=== PATIENT | male | born 1980 | race Caucasian/White ===

== ENCOUNTER 2016-10-23 13:05 | Emergency (ER) | payer OTHER ==
[2016-10-23 13:10] VITALS: BP 137/64
[2016-10-23] MEDS ORDERED: Cyclobenzaprine TAB* 10 MG PO ONE (13:36)
[2016-10-23] MEDS ORDERED: Ketorolac INJ* 60 MG/2 ML VIAL IM ONE (13:36)
--- NOTE | 2017-01-07 21:35 | ED ---
Back Pain - HPI Summary HPI Summary: Pt here w/ Lt sided upper to mid back pain after sneezing three days ago. Worse w/ neck movements and Lt shoulder movements. H/o muscle strain here before. Denies numbness, tingling, weakness, neck pain, [place]. Has tried ibuprofen yesterday w/ relief. Came in for concern of prolonged pain and has to go back to work. - History of Current Complaint Chief Complaint: EDBackInjuryPain Stated Complaint: BACK PAIN Time Seen by Provider: 10/23/16 13:26 Hx Obtained From: Patient Pain Intensity: 5 Pain Scale Used: 0-10 Numeric - Allergies/Home Medications Allergies/Adverse Reactions: Allergies Allergy/AdvReac Type Severity Reaction Status Date / Time No Known Allergies Allergy Verified 10/23/16 13:08 PMH/Surg Hx/FS Hx/Imm Hx Previously Healthy: Yes Endocrine/Hematology History: Denies: Hx Anticoagulant Therapy, Hx Blood Disorders History: Reports: Hx Kidney Stones Neurological History: Denies: Hx Headaches Infectious Disease History: No Infectious Disease History: Denies: Traveled Outside the [place] in Last 30 Days - Family History Known Family History: Positive: None - pt denies a significant FHx - Social History Alcohol Use: None Substance Use Type: Reports: None Smoking Status (MU): Never Smoked Tobacco Review of Systems Constitutional: Negative Negative: Fever, Chills, Fatigue Negative: Chest Pain Respiratory: Negative Negative: Shortness Of Breath, Cough Negative: Abdominal Pain, Vomiting, Nausea Musculoskeletal: Other - see HPI Skin: Negative Neurological: Negative Psychological: Normal All Other Systems Reviewed And Are Negative: Yes Physical Exam Triage Information Reviewed: Yes Vital Signs On Initial Exam: Initial Vitals Temp Pulse Resp BP Pulse Ox 98.1 F 86 16 137/64 99 10/23/16 13:09 10/23/16 13:09 10/23/16 13:09 10/23/16 13:09 10/23/16 13:09 Vital Signs Reviewed: Yes Appearance: Positive: Well-Appearing, Well-Nourished, Pain Distress - mild at rest Skin: Positive: Warm, Dry - no erythema, no ecchymosis over affected area Head/Face: Positive: Normal Head/Face Inspection Eyes: Positive: Normal, EOMI, Conjunctiva Clear ENT: Positive: Hearing grossly normal Neck: Positive: Supple, Nontender, No Lymphadenopathy Respiratory/Lung Sounds: Positive: Clear to Auscultation, Breath Sounds Present. Negative: Rales, Rhonchi, Subcutaneous Emphysema, Stridor, Tracheal Deviation, Wheezes Cardiovascular: Positive: Normal, RRR, Pulses are Symmetrical in both Upper and Lower Extremities, S1, S2. Negative: Murmur, Rub Abdomen Description: Positive: Nontender, Soft Musculoskeletal: Positive: Strength/ROM Intact - UE and cervical spine B/L, Pain @ - Lt trapezius and rhomboid mm are TTP but feel better w gentle massage - no gris deformity, Other - spinous pp NTTP Neurological: Positive: Normal, Sensory/Motor Intact, Alert, Oriented to Person Place, Time, CN Intact II-III, Reflexes Intact Psychiatric: Positive: Normal Diagnostics - Vital Signs Vital Signs Temp Pulse Resp BP Pulse Ox 10/23/16 13:23 98.1 F 86 16 137/64 99 10/23/16 13:09 98.1 F 86 16 137/64 99 - Laboratory Lab Statement: Any lab studies that have been ordered have been reviewed, and results considered in the medical decision making process. Back Pain Course/Dx - Diagnoses Provider Diagnoses: Trapezius muscle strain Discharge - Discharge Plan Condition: Stable Disposition: HOME Prescriptions: Cyclobenzaprine TAB* [Flexeril 10 MG TAB*] 10 mg PO TID PRN #15 tab PRN Reason: Pain Patient Education Materials: Cervical Strain (ED) Forms: *Work Release Referrals: Rodolfo Mendoza [employer] [Nurse Practitioner] - Additional Instructions: Alternate heat with ice to affected area - gentle stretching. You may take ibuprofen with food and alternate with acetaminophen for pain. If not relief, you may also try flexeril for pain. Stay hydrated. Follow-up with PCP in 1-2 weeks if persists as you may benefit from physical therapy, massage, etc.
== END 2016-10-23 14:13 | disposition home or self-care (01) ==
LOC: ED 13:05
DX: S46.912A Strain of unspecified muscle, fascia and tendon at shoulder and upper arm level, left arm, initial encounter (principal); M54.9 Dorsalgia, unspecified; X58.XXXA Exposure to other specified factors, initial encounter; Y93.89 Activity, other specified; Y92.9 Unspecified place or not applicable
CPT/HCPCS: 96372; 99282; A9270-GY; J1885

== ENCOUNTER 2017-09-21 08:18 | Emergency (ER) | payer OTHER ==
[2017-09-21 08:35] VITALS: BP 119/82
--- NOTE | 2017-09-21 09:02 | UC ---
Abdominal Pain Male HPI - HPI Summary HPI Summary: 37 yo male c/o LUQ pain and LBP x few days associated with constipation, denies f/c/dysuria, urinary urgency and frequency or diarrhea - History of Current Complaint Chief Complaint: UCAbdominalPain Stated Complaint: ABD PAIN Time Seen by Provider: 09/21/17 08:50 Hx Obtained From: Patient Onset/Duration: Lasting Days, Resolved Severity Initially: Moderate Severity Currently: Moderate Pain Intensity: 4 - Allergies/Home Medications Allergies/Adverse Reactions: Allergies Allergy/AdvReac Type Severity Reaction Status Date / Time No Known Allergies Allergy Verified 09/21/17 08:35 PMH/Surg Hx/FS Hx/Imm Hx Previously Healthy: Yes Other History Of: Negative For: Anticoagulant Therapy - Surgical History Surgical History: None - Family History Known Family History: Positive: None - pt denies a significant FHx - Social History Alcohol Use: None Substance Use Type: None Smoking Status (MU): Never Smoked Tobacco Review of Systems Constitutional: Negative Skin: Negative Eyes: Negative ENT: Negative Respiratory: Negative Cardiovascular: Negative Gastrointestinal: Abdominal Pain Genitourinary: Negative Motor: Negative Neurovascular: Negative Musculoskeletal: Negative Neurological: Negative Psychological: Negative All Other Systems Reviewed And Are Negative: Yes Physical Exam Triage Information Reviewed: Yes Appearance: Well-Appearing Vital Signs: Initial Vital Signs Temp 36.4 C 09/21/17 08:29 Pulse 84 09/21/17 08:29 Resp 16 09/21/17 08:29 BP 119/82 09/21/17 08:29 Pulse Ox 100 09/21/17 08:29 Vital Signs Reviewed: Yes Eye Exam: Normal ENT Exam: Normal Dental Exam: Normal Neck exam: Normal Neck: Positive: 1 Respiratory Exam: Normal Cardiovascular Exam: Normal Abdomen Description: Positive: Soft, Other: - dense in all 4 quadrants Musculoskeletal Exam: Normal Neurological Exam: Normal Psychological Exam: Normal Skin Exam: Normal Abd Pain Male Course/Dx - Course Course Of Treatment: Abd XR flat and upright neg for free air, but significant fecal stasis noted- stool softerners and mag citrate as prescribed. UA neg for nitraites and LE with 1+ blood, SP gravity 1.030 - Differential Dx/Clinical Impression Differential Diagnosis/HQI/PQRI: Constipation, Diverticulitis, Peptic Ulcer Disease, Urinary Tract Infection Provider Diagnoses: fecal stasis Discharge - Sign-Out/Discharge Documenting (check all that apply): Discharge - Discharge Plan Condition: Stable Disposition: HOME Prescriptions: Docusate CAP* [Colace Cap*] 100 mg PO TID 30 Days #90 cap Magnesium CITRATE* [Citrate of Magnesia*] 300 ml PO ONCE #1 btl Patient Education Materials: Constipation (ED) Referrals: Lupis Fernández MD [Primary Care Provider] - - Billing Disposition and Condition Condition: STABLE Disposition: HOME
--- NOTE | 2017-09-21 09:45 | RAD ---
Indication: Left upper quadrant pain. Flat and upright views of the abdomen demonstrates no free air. No dilated loops of bowel are noted. The colon is filled with stool. IMPRESSION: No free air or obstruction is noted.
== END 2017-09-21 10:33 | disposition home or self-care (01) ==
LOC: UCEAST 08:18
DX: K56.41 Fecal impaction (principal)
CPT/HCPCS: 74019; 81003; 99212; G0463

== ENCOUNTER 2017-11-16 07:59 | Emergency (ER) | payer OTHER ==
[2017-11-16 08:45] LABS: ABS Basophils 0.1 10^3/ul (0-0.2); ABS Eosinophils 0.2 10^3/ul (0-0.6); ABS Lymphocytes 2.5 10^3/ul (1.0-4.8); ABS Monocytes 0.6 10^3/ul (0-0.8); ABS Neutrophils 4.2 10^3/ul (1.5-7.7); ABS Nucleated RBC 0 10^3/ul; Eosinophil % 2.8 % (0-6); Hematocrit 39 % (42-52); Hemoglobin 13.2 g/dl (14.0-18.0); Lymphocyte % 33.1 % (25-47); Mean Corpuscular HGB Conc 34 g/dl (31-36); Mean Corpuscular Hemoglobin 28 pg (27-31); Mean Corpuscular Volume 81 fL (80-94); Nucleated Red Blood Cells % 0.1; Platelet Count 186 10^3/ul (150-450); Red Blood Count 4.77 10^6/ul (4.0-5.4); Red Cell Distribution Width 14 % (10.5-15); White Blood Count 7.7 10^3/ul (3.5-10.8)
[2017-11-16 08:53] LABS: INR 1.03 (0.77-1.02)
[2017-11-16 09:06] LABS: EGFR Non-African American 100.1 (>60)
--- NOTE | 2017-11-16 09:08 | RAD ---
INDICATION: Chest pain COMPARISON: None TECHNIQUE: PA and lateral dual-energy views were obtained. FINDINGS: Bones/Soft Tissues: There are no acute bony findings. Cardiomediastinal: The cardiomediastinal silhouette is normal. Lungs: There are no infiltrates. Pleura: There are no pleural effusions. Other: None IMPRESSION: NORMAL CHEST.
[2017-11-16 10:13] LABS: Urine Appearance Clear; Urine Blood 1+ (Negative); Urine Color Straw; Urine Ketones Negative (Negative); Urine Protein Negative (Negative); Urine Specific Gravity 1.004 (1.010-1.030); Urine Urobilinogen Negative (Negative)
[2017-11-16 10:55] VITALS: BP 119/74
--- NOTE | 2017-11-16 10:57 | ED ---
Shelly Kramer Rebecca, scribed for Anthony Soriano on 11/16/17 at 0825 . HPI Chest Pain - HPI Summary HPI Summary: Pt is a 37 y/o M who presents to ED c/o CP and abdominal pain. Sx have been present intermittently for 3 months, worsening recently which is what prompted him to come to the ED. Pain is in the left anterior chest pain and LUQ and on triage was mild, ranked 3/10, though in the room he denied any pain. Stated that the last time the pain occurred was last night. Occasionally, the pain will radiate into the left shoulder. Sx aggravated and alleviated by nothing. Additionally c/o intermittent SOB. PMHx GERD, FHx CAD>50y/o. - History of Current Complaint Chief Complaint: EDChestPainROMI Time Seen by Provider: 11/16/17 08:17 Hx Obtained From: Patient Onset/Duration: Started Weeks Ago Timing: Intermittent Current Severity: Mild Pain Intensity: 3 Pain Scale Used: 0-10 Numeric Chest Pain Location: Left Anterior Chest Pain Radiates To:: Shoulder - Left Aggravating Factor(s): Nothing Alleviating Factor(s): Nothing Associated Signs and Symptoms: Positive: Abdominal Pain - LUQ - Allergy/Home Medications Allergies/Adverse Reactions: Allergies Allergy/AdvReac Type Severity Reaction Status Date / Time No Known Allergies Allergy Verified 09/21/17 08:35 PMH/Surg Hx/FS Hx/Imm Hx Endocrine/Hematology History: Denies: Hx Anticoagulant Therapy, Hx Blood Disorders GI History: Reports: Hx Gastroesophageal Reflux Disease History: Reports: Hx Kidney Stones Neurological History: Denies: Hx Headaches Infectious Disease History: No Infectious Disease History: Denies: Traveled Outside the [place] in Last 30 Days - Family History Known Family History: Positive: Cardiac Disease - Social History Alcohol Use: None Substance Use Type: Reports: None Smoking Status (MU): Never Smoked Tobacco Review of Systems Positive: Chest Pain Positive: Shortness Of Breath Positive: Abdominal Pain All Other Systems Reviewed And Are Negative: Yes Physical Exam - Summary Physical Exam Summary: Appearance: Well appearing, no pain distress Skin: warm, dry, reflects adequate perfusion Head/face: normal Eyes: EOMI, BRENNEN ENT: normal Neck: supple, non-tender Respiratory: CTA, breath sounds present Cardiovascular: RRR, pulses symmetrical ~ Abdomen: non-tender, soft Bowel: present Musculoskeletal: normal, strength/ROM intact Neuro: normal, sensory motor intact, A&Ox3 Triage Information Reviewed: Yes Vital Signs On Initial Exam: Initial Vitals Temp Pulse Resp BP Pulse Ox 97.5 F 86 16 133/81 99 11/16/17 08:03 11/16/17 08:03 11/16/17 08:03 11/16/17 08:03 11/16/17 08:03 Vital Signs Reviewed: Yes Diagnostics - Vital Signs Vital Signs Temp Pulse Resp BP Pulse Ox 11/16/17 08:03 97.5 F 86 16 133/81 99 - Laboratory Lab Results: Lab Results 11/16/17 11/16/17 11/16/17 Range/Units 08:33 08:33 08:33 WBC 7.7 (3.5-10.8) 10^3/ul RBC 4.77 (4.0-5.4) 10^6/ul Hgb 13.2 L (14.0-18.0) g/dl Hct 39 L (42-52) % MCV 81 (80-94) fL MCH 28 (27-31) pg MCHC 34 (31-36) g/dl RDW 14 (10.5-15) % Plt Count 186 (150-450) 10^3/ul MPV 9.0 (7.4-10.4) um3 Neut % (Auto) 55.0 (38-83) % Lymph % (Auto) 33.1 (25-47) % Calloway % (Auto) 8.4 H (0-7) % Eos % (Auto) 2.8 (0-6) % Baso % (Auto) 0.7 (0-2) % Absolute Neuts (auto) 4.2 (1.5-7.7) 10^3/ul Absolute Lymphs (auto) 2.5 (1.0-4.8) 10^3/ul Absolute Monos (auto) 0.6 (0-0.8) 10^3/ul Absolute Eos (auto) 0.2 (0-0.6) 10^3/ul Absolute Basos (auto) 0.1 (0-0.2) 10^3/ul Absolute Nucleated RBC 0 10^3/ul Nucleated RBC % 0.1 INR (Anticoag Therapy) 1.03 H (0.77-1.02) APTT 28.8 (26.0-36.3) seconds Sodium 138 L (139-145) mmol/L Potassium 3.5 (3.5-5.0) mmol/L Chloride 104 (101-111) mmol/L Carbon Dioxide 30 (22-32) mmol/L Anion Gap 4 (2-11) mmol/L BUN 14 (6-24) mg/dL Creatinine 0.86 (0.67-1.17) mg/dL Est GFR ( Amer) 128.7 (>60) Est GFR (Non-Af Amer) 100.1 (>60) BUN/Creatinine Ratio 16.3 (8-20) Glucose 100 (70-100) mg/dL Lactic Acid (0.5-2.0) mmol/L Calcium 9.5 (8.6-10.3) mg/dL Magnesium 2.1 (1.9-2.7) mg/dL Total Bilirubin 0.40 (0.2-1.0) mg/dL AST 17 (13-39) U/L ALT 11 (7-52) U/L Alkaline Phosphatase 66 (34-104) U/L Troponin I 0.00 (<0.04) ng/mL B-Natriuretic Peptide ( - 100) pg/mL Total Protein 7.5 (6.4-8.9) g/dL Albumin 4.0 (3.2-5.2) g/dL Globulin 3.5 (2-4) g/dL Albumin/Globulin Ratio 1.1 (1-3) Lipase 35 (11.0-82.0) U/L Urine Color Urine Appearance Urine pH (5-9) Ur Specific Hope (1.010-1.030) Urine Protein (Negative) Urine Ketones (Negative) Urine Blood (Negative) Urine Nitrate (Negative) Urine Bilirubin (Negative) Urine Urobilinogen (Negative) Ur Leukocyte Esterase (Negative) Urine WBC (Auto) (Absent) Urine RBC (Auto) (Absent) Urine Bacteria (Absent) Urine Glucose (Negative) 11/16/17 11/16/17 11/16/17 Range/Units 08:33 08:33 09:50 WBC (3.5-10.8) 10^3/ul RBC (4.0-5.4) 10^6/ul Hgb (14.0-18.0) g/dl Hct (42-52) % MCV (80-94) fL MCH (27-31) pg MCHC (31-36) g/dl RDW (10.5-15) % Plt Count (150-450) 10^3/ul MPV (7.4-10.4) um3 Neut % (Auto) (38-83) % Lymph % (Auto) (25-47) % Calloway % (Auto) (0-7) % Eos % (Auto) (0-6) % Baso % (Auto) (0-2) % Absolute Neuts (auto) (1.5-7.7) 10^3/ul Absolute Lymphs (auto) (1.0-4.8) 10^3/ul Absolute Monos (auto) (0-0.8) 10^3/ul Absolute Eos (auto) (0-0.6) 10^3/ul Absolute Basos (auto) (0-0.2) 10^3/ul Absolute Nucleated RBC 10^3/ul Nucleated RBC % INR (Anticoag Therapy) (0.77-1.02) APTT (26.0-36.3) seconds Sodium (139-145) mmol/L Potassium (3.5-5.0) mmol/L Chloride (101-111) mmol/L Carbon Dioxide (22-32) mmol/L Anion Gap (2-11) mmol/L BUN (6-24) mg/dL Creatinine (0.67-1.17) mg/dL Est GFR ( Amer) (>60) Est GFR (Non-Af Amer) (>60) BUN/Creatinine Ratio (8-20) Glucose (70-100) mg/dL Lactic Acid 0.9 (0.5-2.0) mmol/L Calcium (8.6-10.3) mg/dL Magnesium (1.9-2.7) mg/dL Total Bilirubin (0.2-1.0) mg/dL AST (13-39) U/L ALT (7-52) U/L Alkaline Phosphatase (34-104) U/L Troponin I (<0.04) ng/mL B-Natriuretic Peptide 6 ( - 100) pg/mL Total Protein (6.4-8.9) g/dL Albumin (3.2-5.2) g/dL Globulin (2-4) g/dL Albumin/Globulin Ratio (1-3) Lipase (11.0-82.0) U/L Urine Color Straw Urine Appearance Clear Urine pH 7.0 (5-9) Ur Specific Hope 1.004 L (1.010-1.030) Urine Protein Negative (Negative) Urine Ketones Negative (Negative) Urine Blood 1+ A (Negative) Urine Nitrate Negative (Negative) Urine Bilirubin Negative (Negative) Urine Urobilinogen Negative (Negative) Ur Leukocyte Esterase Negative (Negative) Urine WBC (Auto) Trace(0-5/hpf) (Absent) Urine RBC (Auto) Trace(0-2/hpf) (Absent) Urine Bacteria Absent (Absent) Urine Glucose Negative (Negative) Result Diagrams: 11/16/17 08:33 11/16/17 08:33 Lab Statement: Any lab studies that have been ordered have been reviewed, and results considered in the medical decision making process. - Radiology CXR Xray Interpretation: No Acute Changes - NORMAL CHEST. Radiology report reviewed by ED physician. Radiology Interpretation Completed By: Radiologist - EKG 0811 Cardiac Rate: NL - 83 bpm EKG Rhythm: Sinus Rhythm EKG Interpretation: No acute changes Chest Pain Course/Dx - Course Assessment/Plan: Pt is a 37 y/o M who presented to ED c/o left-sided CP and LUQ abdominal pain intermittently for 3 months. It is unlikely to be ACS. CXR reveals no acute findings. EKG is sinus rhythm with no acute changes. Blood work and UA were done with blood results including a troponin of 0.00. The pt will be put on Protonix and discharged with Dx of atypical chest pain and a follow up with his PCP in 3 days. He will also be referred to cardiology for an outpatient stress test. - Chest Pain Differential Diagnosis/HQI/PQRI: Acute CA, ACS, Angina, GI Disease, Lower Respiratory Infection, Other: - gerd - Diagnoses Provider Diagnoses: Atypical chest pain Discharge - Sign-Out/Discharge Documenting (check all that apply): Discharge/Admit/Transfer - Discharge - Discharge Plan Condition: Stable Disposition: HOME Prescriptions: Pantoprazole TAB (NF) [Protonix TAB (NF)] 40 mg PO DAILY #30 tab Patient Education Materials: Chest Pain (ED) Referrals: Lupis Fernández MD [Primary Care Provider] - 3 Days Vernon Mosqueda MD [Medical Doctor] - (Follow up for an outpatient stress test. ) Additional Instructions: RETURN TO ED FOR ANY NEW OR WORSENING SYMPTOMS. - Billing Disposition and Condition Condition: STABLE Disposition: HOME The documentation as recorded by the Shelly dean Rebecca accurately reflects the service I personally performed and the decisions made by , Anthony Soriano.
== END 2017-11-16 10:55 | disposition home or self-care (01) ==
LOC: ED 07:59
DX: R07.89 Other chest pain (principal); K21.9 Gastro-esophageal reflux disease without esophagitis; Z87.442 Personal history of urinary calculi; R10.12 Left upper quadrant pain
CPT/HCPCS: 36415; 71046; 80053; 81003; 81015; 83605; 83690; 83735; 83880; 84484; 85025; 85610; 85730; 87086; 93005; 99282

== ENCOUNTER 2018-01-21 08:19 | Emergency (ER) | payer OTHER ==
[2018-01-21 08:35] VITALS: BP 115/70
--- NOTE | 2018-01-21 09:23 | RAD ---
Indication: Left middle finger injury. 3 views of left middle finger demonstrates no fracture. No other bone or joint abnormality is identified. IMPRESSION: No fracture of the left middle finger noted.
--- NOTE | 2018-01-21 09:41 | UC ---
Hand/Wrist HPI - HPI Summary HPI Summary: left third finger was caught in a door yesterday and he noticed stiffness and bruising, wants xray to rule out fracture. Denies any PMH or FHX, states he is taking a muscle relaxant for shoulder pain - History Of Current Complaint Chief Complaint: UCUpperExtremity Stated Complaint: FINGER INJURY Time Seen by Provider: 01/21/18 08:39 Hx Obtained From: Patient ?: Yes Onset/Duration: Sudden Onset, Lasting Hours Severity Initially: Mild Severity Currently: Moderate Pain Intensity: 5 Character Of Pain: Dull Aggravating Factor(s): Movement Alleviating Factor(s): Ice Associated Signs And Symptoms: Positive: Bruising - Allergies/Home Medications Allergies/Adverse Reactions: Allergies Allergy/AdvReac Type Severity Reaction Status Date / Time No Known Allergies Allergy Verified 09/21/17 08:35 PMH/Surg Hx/FS Hx/Imm Hx Previously Healthy: Yes Other History Of: Negative For: Anticoagulant Therapy - Surgical History Surgical History: None - Family History Known Family History: Positive: None - pt denies a significant FHx, Cardiac Disease - Social History Alcohol Use: None Substance Use Type: None Smoking Status (MU): Never Smoked Tobacco Review of Systems Constitutional: Negative All Other Systems Reviewed And Are Negative: Yes Physical Exam Triage Information Reviewed: Yes Appearance: Well-Appearing, No Pain Distress, Well-Nourished Vital Signs: Initial Vital Signs Temp 98.6 F 01/21/18 08:28 Pulse 84 01/21/18 08:28 Resp 18 01/21/18 08:28 BP 115/70 01/21/18 08:28 Pulse Ox 98 01/21/18 08:28 Vital Signs Reviewed: Yes Eyes: Positive: Conjunctiva Clear ENT: Positive: Hearing grossly normal, Pharynx normal Neck: Positive: Supple, Nontender Respiratory: Positive: Chest non-tender Cardiovascular: Positive: Pulses Normal, Brisk Capillary Refill Musculoskeletal: Positive: Strength Intact, ROM Intact, No Edema, Other: - no edema or deformity of left third finger. Subungueal hematoma noted without displacement of nail. Non tender to palpation. Sensation preserved. Capillary refill brisk, ulnar/radial pulses present Hand/Wrist Course/Dx - Course Course Of Treatment: blunt trauma on left third finger without evidence of fracture, xrays were normal. Instructed patient to continue ROM as tolerated. Offered drainage of subungueal hematoma but patient declined. - Differential Dx/Diagnosis Provider Diagnoses: Blunt trauma third left finger. Subungueal hematoma Discharge - Sign-Out/Discharge Documenting (check all that apply): Patient Departure - Discharge Plan Condition: Good Disposition: HOME Patient Education Materials: Melyssa Finger (ED), Subungual Hematoma (ED) Referrals: Lupis Fernández MD [Primary Care Provider] - - Billing Disposition and Condition Condition: GOOD Disposition: Home
== END 2018-01-21 09:53 | disposition home or self-care (01) ==
LOC: UCEAST 08:19
DX: S60.032A Contusion of left middle finger without damage to nail, initial encounter (principal); W23.0XXA Caught, crushed, jammed, or pinched between moving objects, initial encounter; Y93.9 Activity, unspecified; Y92.9 Unspecified place or not applicable
CPT/HCPCS: 73140; 99211; G0463

== ENCOUNTER 2019-09-29 10:53 | Emergency (ER) | payer OTHER ==
--- NOTE | 2019-09-29 11:06 | ED ---
Complex/Multi-Sys Presentation - HPI Summary HPI Summary: right shoulder pain, radiating down arm into hand. pain started when he was getting ready to go to bed and worsened overnight. feels numbness in fingers. - History Of Current Complaint Chief Complaint: EDExtremityUpper Time Seen by Provider: 09/29/19 11:01 - Allergies/Home Medications Allergies/Adverse Reactions: Allergies Allergy/AdvReac Type Severity Reaction Status Date / Time No Known Allergies Allergy Verified 09/29/19 10:59 Home Medications: Home Medications Cyclobenzaprine TAB* [Flexeril 10 MG TAB*] 10 mg PO TID PRN #15 tab 10/23/16 [ Rx Confirmed 09/29/19] Ibuprofen TAB* [Advil TAB*] 200 mg PO Q6H PRN 09/29/19 [History Confirmed ] PMH/Surg Hx/FS Hx/Imm Hx Endocrine/Hematology History: Denies: Hx Anticoagulant Therapy, Hx Blood Disorders GI History: Reports: Hx Gastroesophageal Reflux Disease History: Reports: Hx Kidney Stones Neurological History: Denies: Hx Headaches Infectious Disease History: No Infectious Disease History: Denies: Traveled Outside the [place] in Last 30 Days - Family History Known Family History: Positive: None - pt denies a significant FHx, Cardiac Disease - Social History Alcohol Use: None Substance Use Type: Reports: None Smoking Status (MU): Never Smoked Tobacco Physical Exam Vital Signs On Initial Exam: Initial Vitals Temp Pulse Resp BP Pulse Ox 97.7 F 90 16 123/73 98 09/29/19 10:55 09/29/19 10:55 09/29/19 10:55 09/29/19 10:55 09/29/19 10:55 Diagnostics - Vital Signs Vital Signs Temp Pulse Resp BP Pulse Ox 09/29/19 10:55 97.7 F 90 16 123/73 98 - Laboratory Lab Statement: Any lab studies that have been ordered have been reviewed, and results considered in the medical decision making process. Discharge ED - Discharge Plan Referrals: Lupis Fernández MD [Primary Care Provider] - - Attestation Statements Document Initiated by Scribe: Yes
--- NOTE | 2019-09-29 11:24 | ED ---
Upper Extremity Pain - HPI Summary HPI Summary: 39 y/o M presenting to [facility] c/o 11/26 right posterior shoulder pain starting 4 days ago. Patient states the pain worsened last night. He woke up this morning and pain is radiating into his right upper arm and right hand. He reports numbness in right fingers and intermittent posterior neck pain. No numbness in right upper arm, pain or symptoms in left arm and both legs. He is unable to lie down and sleep. He has to sleep with his bed on an incline. He took ibuprofen and muscle relaxer, each once, last night with some improvement in symptoms. Had similar pain 4 months ago but it was only concentrated in R posterior shoulder then. Symptoms aggravated by nothing. Not worse with change in head position. Pain is worse at night. Symptoms alleviated by ibuprofen and muscle relaxer. He does not take daily medications. No known drug allergies. No PMHx. No surgical hx. No ETOH, recreation drug, tobacco use. He works at [employer] and in [employer] at [place] and does a lot of lifting at work. - History of Current Complaint Chief Complaint: EDExtremityUpper Stated Complaint: RT ARM PAIN PER PT Time Seen by Provider: 09/29/19 11:01 Hx Obtained From: Patient Onset/Duration: Started Days Ago - 4, Still Present Timing: Constant Severity Currently: Moderate - 11/26 Pain Location: Shoulder - R, Arm - R, Hand - R, Finger - R Aggravating Factor(s): Nothing Alleviating Factor(s): Other - ibuprofen and muscle relaxer Associated Signs & Symptoms: Positive: Negative - numbness in right upper arm, pain or symptoms in left arm and both legs, Other - numbness in right fingers and intermittent posterior neck pain - Allergies/Home Medications Allergies/Adverse Reactions: Allergies Allergy/AdvReac Type Severity Reaction Status Date / Time No Known Allergies Allergy Verified 09/29/19 10:59 Home Medications: Home Medications Cyclobenzaprine TAB* [Flexeril 10 MG TAB*] 10 mg PO TID PRN #15 tab 10/23/16 [ Rx Confirmed 09/29/19] HYDROcodone/ACETAMIN 5-325 MG* [[place] 5-325 TAB*] 1 tab PO Q6H PRN #12 tab MDD 4 tablets 09/29/19 [Rx] Ibuprofen TAB* [Advil TAB*] 200 mg PO Q6H PRN 09/29/19 [History Confirmed ] predniSONE [Prednisone 20 MG TAB] 20 mg PO QAM 4 Days #8 tablet 09/29/19 [Rx] PMH/Surg Hx/FS Hx/Imm Hx Endocrine/Hematology History: Denies: Hx Anticoagulant Therapy GI History: Reports: Hx Gastroesophageal Reflux Disease History: Reports: Hx Kidney Stones Neurological History: Denies: Hx Headaches - Surgical History Surgical History: None Infectious Disease History: No Infectious Disease History: Denies: Traveled Outside the [place] in Last 30 Days - Family History Known Family History: Positive: Cardiac Disease - Social History Alcohol Use: None Substance Use Type: Reports: None Hx Tobacco Use: No Smoking Status (MU): Never Smoked Tobacco Review of Systems Musculoskeletal: Negative - pain or symptoms in left arm and both legs Positive: Other - R posterior shoulder pain radiating into his R upper arm and R hand, posterior neck pain Neurological/Mental Status: Negative - numbness in right upper arm, Other - numbness in right fingers All Other Systems Reviewed And Are Negative: Yes Physical Exam - Summary Physical Exam Summary: Constitutional: Well-developed, Well-nourished, Alert. (-) Distressed Skin: Warm, Dry HENT: Normocephalic; Atraumatic Eyes: Conjunctiva normal Neck: Musculoskeletal ROM normal neck. (-) JVD, (-) Stridor, (-) Tracheal deviation; no midline neck tenderness Cardio: Rhythm regular, rate normal, Heart sounds normal; Intact distal pulses; Radial pulses are 2+ and symmetric. (-) Murmur Pulmonary/Chest wall: Effort normal. (-) Respiratory distress, (-) Wheezes, (-) Rales Abd: Soft, (-) tenderness, (-) Distension, (-) Guarding, (-) Rebound Musculoskeletal: Decreased sensation in all 5 fingers on the right, he has what feels like a knot in his R trapezius, FROM in both shoulders Lymph: (-) Cervical adenopathy Neuro: Alert, Oriented x3 Psych: Mood and affect Normal Triage Information Reviewed: Yes Vital Signs On Initial Exam: Initial Vitals Temp Pulse Resp BP Pulse Ox 97.7 F 90 16 123/73 98 09/29/19 10:55 09/29/19 10:55 09/29/19 10:55 09/29/19 10:55 09/29/19 10:55 Vital Signs Reviewed: Yes Procedures - Sedation Patient Received Moderate/Deep Sedation with Procedure: No Diagnostics - Vital Signs Vital Signs Temp Pulse Resp BP Pulse Ox 09/29/19 10:55 97.7 F 90 16 123/73 98 - Laboratory Lab Statement: Any lab studies that have been ordered have been reviewed, and results considered in the medical decision making process. Course/Dx - Course Course Of Treatment: Patient is here with right arm pain and finger numbness. Patient's symptoms are consistent with cervical radiculopathy. Patient did have one area of suspected muscle spasm in his trapezius so a trigger point injection was performed with little relief. Patient Carmen has Flexeril at home. Patient was discharged with a prescription for steroids and a short course of [place] for his pain. - Diagnoses Provider Diagnoses: Cervical radiculopathy Discharge ED - Sign-Out/Discharge Documenting (check all that apply): Patient Departure - Discharge Plan Condition: Stable Disposition: HOME Prescriptions: HYDROcodone/ACETAMIN 5-325 MG* [[place] 5-325 TAB*] 1 tab PO Q6H PRN #12 tab MDD 4 tablets PRN Reason: Pain - Severe predniSONE [Prednisone 20 MG TAB] 20 mg PO QAM 4 Days #8 tablet Patient Education Materials: Cervical Radiculopathy (ED) Forms: *Work Release Referrals: Lupis Fernández MD [Primary Care Provider] - 09/30/19 Additional Instructions: Take your medicine as prescribed. Take Motrin for pain as well. Call your primary care provider tomorrow 09/30/2019 to discuss referral to physical therapy. Please return to the Emergency Department for any new or worsening symptoms such as severe weakness in your right arm. - Billing Disposition and Condition Condition: STABLE Disposition: Home - Attestation Statements Document Initiated by Nissaibchuy: Yes Documenting Scribe: Priscilla Barragan Provider For Whom Andres is Documenting (Include Credential): Abel Cochran MD Scribe Attestation: Priscilla Kramer, scribed for Abel Cochran MD on 09/29/19 at 1612. Scribe Documentation Reviewed: Yes Provider Attestation: The documentation as recorded by the Priscilla dean accurately reflects the service I personally performed and the decisions made by Abel le MD Status of Scribe Document: Viewed
[2019-09-29] MEDS ORDERED: Lidocaine 1% MPF ** 5 ML VIAL INJ ONE (11:28)
[2019-09-29 12:03] VITALS: BP 117/76
== END 2019-09-29 12:00 | disposition home or self-care (01) ==
LOC: ED 10:53
DX: M54.10 Radiculopathy, site unspecified (principal); M25.511 Pain in right shoulder; K21.9 Gastro-esophageal reflux disease without esophagitis; Z87.442 Personal history of urinary calculi; Z79.52 Long term (current) use of systemic steroids
CPT/HCPCS: 99282; J7512